=== PATIENT | female | born 1945 | race Caucasian/White ===

== ENCOUNTER → 2017-02-22 | Outpatient (CLI) | payer MEDICARE, MEDICAID ==
[~2017-02-22] MED LIST: LEVAQUIN DPS500 MG PO; MIRALAX DPS17 GM PO; TIMOPTIC 0.25% OD; TYLENOL DPS325 MG PO; XALATAN2.5 ML OU; [UNRECOGNIZED DRUG - OTHER] OD
== END | disposition home or self-care (01) ==
LOC: RAD.S 07:11
DX: Z12.31 Encounter for screening mammogram for malignant neoplasm of breast (principal); Z80.3 Family history of malignant neoplasm of breast